=== PATIENT | male | born 1950 | race Caucasian/White ===

== ENCOUNTER 2021-07-10 13:26 | Emergency (ER) | payer BC, OTHER ==
[2021-07-10 14:02] VITALS: BMI 28.6
[2021-07-10] MEDS ORDERED: CASIRIVIMAB/IMDEVIMAB 10 ML in SODIUM CHLORIDE 100 ML IVPB ONE (14:17)
[2021-07-10 18:27] VITALS: BP 129/86; PULSE 89; TEMP 98.7
== END 2021-07-10 18:27 | disposition home or self-care (01) ==
LOC: JCOVINFU 13:26
DX: U07.1 COVID-19 (principal)
CPT/HCPCS: 99284-25; M0240; Q0240